=== PATIENT | female | born 1970 | race African-American/Black ===

== ENCOUNTER 2017-01-29 07:12 | Inpatient (IN) | payer SELFPAY ==
[~2017-01-29] VITALS: Ht 172.7 cm; Wt 96.2 kg
[2017-01-29] MEDS ORDERED: ONDANSETRON 4 MG/2 ML VIAL IV ONE (07:30)
[2017-01-29] MEDS ORDERED: HYDROMORPHONE 1 MG/1 ML DISP.SYRIN IV ONE (07:30)
[2017-01-29] MEDS ORDERED: IV NORMAL SALINE 500 ML BAG IV ONE (07:30)
[2017-01-29 07:42] LABS: BASOPHILS % (AUTO) 0.2 % (0.0-2.0); EOSINOPHILS # (AUTO) 0.1 K/uL (0.0-0.7); HEMATOCRIT 32.2 % (37-47); HEMOGLOBIN 9.9 G/DL (12.0-16.0); LYMPHOCYTES # (AUTO) 1.3 K/UL (0.8-4.8); LYMPHOCYTES % (AUTO) 10.8 % (20.5-51.5); MEAN CORPUSCULAR HEMOGLOBIN 21.6 UUG (27.0-31.0); MEAN CORPUSCULAR HGB CONC 31 g/dL (32.0-37.0); MEAN CORPUSCULAR VOLUME 70.7 FL (81.0-99.0); MONOCYTES # (AUTO) 0.8 K/UL (0.1-1.30); NEUTROPHILS # (AUTO) 9.9 K/UL (1.8-8.9); PLATELET COUNT (AUTO) 276 K/UL (150-450); RED BLOOD CELL COUNT(AUTO) 4.55 MIL/UL (4.2-5.4); WHITE BLOOD COUNT (AUTO) 12.1 K/UL (4.0-11.2)
[2017-01-29 07:43] LABS: CREATININE 0.9 mg/dL (0.6-1.3)
[2017-01-29 07:49] LABS: BILIRUBIN,DIRECT 0.2 mg/dL (0.0-0.2); BILIRUBIN,TOTAL 0.7 mg/dL (0.2-1.0)
[2017-01-29] MEDS ORDERED: ONDANSETRON 4 MG/2 ML VIAL ONE (07:50)
[2017-01-29] MEDS ORDERED: HYDROMORPHONE 1 MG/1 ML DISP.SYRIN ONE (07:50)
[2017-01-29 08:07] LABS: *BILIRUBIN,URIN NEGATIVE (NEGATIVE); *BLOOD, URINE 1+ (NEGATIVE); *CLARITY,URINE SLIGHTLY CLOUDY (CLEAR); *COLOR,URINE YELLOW (YELLOW); *KETONES,URINE NEGATIVE (NEGATIVE); *PROTEIN,URINE NEGATIVE (NEGATIVE); *UROBILINOGEN,URINE 0.2 E.U./dl (NORMAL); LEUKOCYTE ESTERASE ,URINE NEGATIVE (NEGATIVE); NITRITE, URINE POSITIVE (NEGATIVE); UGLUCOSE NEGATIVE (NEGATIVE)
[2017-01-29 08:20] LABS: *URINE HCG, QUAL NEGATIVE (NEGATIVE); BACTERIA,URINE MANY /HPF (NONE SEEN); RBC,URINE NONE SEEN /HPF (0-3); SQUAMOUS EPITHELIAL CELL,UR MODERATE /HPF (NONE SEEN); WBC,URINE 0-3 /HPF (0-3)
[2017-01-29] MEDS ORDERED: PIPERACILLIN SODIUM/TAZOBACTAM 3.375 G in IV DEXTROSE 5% 50 ML IV ONE (09:00)
[2017-01-29] MEDS ORDERED: METRONIDAZOLE 500 MG/NS 100 ML PIGGYBACK IV ONE (09:00)
[2017-01-29] MEDS ORDERED: IBUP-1953 PO (09:04)
[2017-01-29] MEDS ORDERED: PIPERACILLIN/TAZOBACTAM/D5W 50 ML IV ONE (09:18)
[2017-01-29] MEDS ORDERED: METRONIDAZOLE 500 MG/NS 100ML 100 ML IV ONE (09:18)
--- NOTE | 2017-01-29 09:30 | NUR ---
called dr. bernie cortes for surgical consult andstefani a message
--- NOTE | 2017-01-29 10:26 | NUR ---
pt transfered to floor in stable condition
--- NOTE | 2017-01-29 10:33 | NUR ---
ADMITTED FROM HOME VIA ER A 46 YO FEMALE WITH ADM DX OF DIVERTICULITIS ALERT AND ORIENTED X3 NO SIGNS OF PAIN OR DISTRESS, PAIN UNDER CONTROL FROM DILAUDID GIVEN IN ER. ROUTINE ADMISSION ASSESSMENT INITIATED DR ARMENDARIZ MADE AWARE OF ADMISSION. AWAITING SURGICAL CONSULT
[2017-01-29 11:00] VITALS: BP 93/61
[2017-01-29] MEDS: IV NS 1000 ML 1,000 ML IV ONE ×2 (11:00→11:35)
[2017-01-29] MEDS ORDERED: ONDANSETRON 4 MG/2 ML VIAL IV PRN (11:15)
[2017-01-29] MEDS: IV NS 1000 ML 1,000 ML IV SCH ×3 (11:15→22:43)
[2017-01-29] MEDS ORDERED: ACETAMINOPHEN 325 MG TABLET PO PRN (11:15)
[2017-01-29] MEDS ORDERED: MAGNESIUM HYDROXIDE 30 ML LIQUID UDC PO PRN (11:15)
[2017-01-29] MEDS ORDERED: MORPHINE SULFATE 2 MG/1 ML DISP.SYRIN IV PRN ×2 (11:15→18:15)
[2017-01-29] MEDS ORDERED: ZOLPIDEM 5 MG TABLET PO PRN (11:15)
[2017-01-29] MEDS ORDERED: Z GUARD REMEDY PASTE 57 GM TUBE TOP PRN (11:15)
[2017-01-29] MEDS ORDERED: MORPHINE SULFATE 4 MG/1 ML DISP.SYRIN IV PRN (11:45)
--- NOTE | 2017-01-29 12:00 | NUR ---
SEEN BY DR ANNE FOR CONSULT SEE NOTES
[2017-01-29] MEDS: METRONIDAZOLE 500 MG/NS 100ML 500 MG in PREMIXED 1 EACH IV SCH ×2 (13:09→22:43)
--- NOTE | 2017-01-29 15:47 | NUR ---
KEEP NPO TILL FURTHER ORDERS, STARTED ON IV ANTIBIOTICS NO ALLERGY REACTION NOTED
[2017-01-29 16:14] VITALS: BP 99/67
--- NOTE | 2017-01-29 16:32 | NUR ---
NS IV STARTED AT 1135
[2017-01-29] MEDS: HYDROCODONE/APAP 5-325MG TABLET PO PRN (17:28)
--- NOTE | 2017-01-29 17:54 | NUR ---
REMAINS NPO TILL FURTHER ORDERS, CONTINUE WITH PAIN MANAGEMENT
--- NOTE | 2017-01-29 19:40 | NUR ---
PT RECEIVED IN BED, AWAKE. A/OX4. ABLE TO MAKE NEEDS KNOWN. V/S STABLE. NO ACUTE DISTRESS NOTED. NO COMPLAINTS OF PAIN AT THIS TIME. IVF INFUSING. SAFETY MEASURES IMPLEMENTED. CALL LIGHT WITHIN REACH. WILL CONT TO MONITOR.
[2017-01-29 20:00] VITALS: BP 95/58
--- NOTE | 2017-01-29 20:55 | NUR ---
WITH PT TO DISCUSS PLAN OF CARE.
[2017-01-29] MEDS: MORPHINE SULFATE 4 MG/1 ML DISP.SYRIN IV PRN (23:03)
[2017-01-30] MEDS: HYDROCODONE/APAP 5-325MG TABLET PO PRN ×2 (00:48→20:11)
[2017-01-30] MEDS: METRONIDAZOLE 500 MG/NS 100ML 500 MG in PREMIXED 1 EACH IV SCH ×3 (05:48→21:37)
[2017-01-30] MEDS: MORPHINE SULFATE 4 MG/1 ML DISP.SYRIN IV PRN ×2 (05:48→12:14)
[2017-01-30] MEDS: PANTOPRAZOLE SODIUM 40 MG TABLET.DR PO SCH (05:49)
[2017-01-30 05:51] VITALS: BP 90/56
--- NOTE | 2017-01-30 06:26 | NUR ---
END OF SHIFT NOTES. PT SLEPT INTERMITTENTLY THROUGHOUT SHIFT. V/S STABLE. NO ACUTE DISTRESS NOTED. PT COMPLAIN OF ABDOMINAL PAIN DURING SHIFT. PAIN MEDICATION ADMINISTERED ORDERED. IVF INFUSING. SAFETY MAINTAINED. CALL LIGHT WITHIN REACH.
[2017-01-30 06:35] LABS: BASOPHILS % (AUTO) 0.3 % (0.0-2.0); EOSINOPHILS # (AUTO) 0.4 K/uL (0.0-0.7); EOSINOPHILS % (AUTO) 4.3 % (0.0-7.0); HEMATOCRIT 30.5 % (37-47); HEMOGLOBIN 9.7 G/DL (12.0-16.0); LYMPHOCYTES # (AUTO) 2.3 K/UL (0.8-4.8); LYMPHOCYTES % (AUTO) 27.4 % (20.5-51.5); MEAN CORPUSCULAR HEMOGLOBIN 22.7 UUG (27.0-31.0); MEAN CORPUSCULAR HGB CONC 32 g/dL (32.0-37.0); MEAN CORPUSCULAR VOLUME 71.4 FL (81.0-99.0); MONOCYTES % (AUTO) 11.5 % (0.0-11.0); NEUTROPHILS # (AUTO) 4.6 K/UL (1.8-8.9); NEUTROPHILS % (AUTO) 56.5 % (38.5-71.5); PLATELET COUNT (AUTO) 269 K/UL (150-450); RED BLOOD CELL COUNT(AUTO) 4.27 MIL/UL (4.2-5.4); WHITE BLOOD COUNT (AUTO) 8.3 K/UL (4.0-11.2)
[2017-01-30 07:45] LABS: PHOSPHOROUS 3.4 mg/dL (2.5-4.9); POTASSIUM 3.5 mmol/L (3.5-5.1)
--- NOTE | 2017-01-30 09:00 | NUR ---
DAILY NOTE JUST RECEIVED REPORT ON THIS PT FROM HER NURSE. ADDING HER TO MY ASSIGNMENT. IN TO SEE PT TO LET HER KNOW VERBALIZED UNDERSTANDING NO C/O PAIN
[2017-01-30 09:37] LABS: BAND % (MANUAL) 2 % (0-10); EOSINOPHILS % (MANUAL) 5 % (0-8); LYMPHOCYTES % (MANUAL) 30 % (20-40); MONOCYTES % (MANUAL) 12 % (2-10); NEUTROPHILS % (MANUAL) 51 % (42-75)
[2017-01-30] MEDS: IV NS 1000 ML 1,000 ML IV SCH ×2 (10:51→20:11)
[2017-01-30 12:01] VITALS: BP 100/58
[2017-01-30 12:33] LABS: IRON, SERUM 23 ug/dL (50-175)
[2017-01-30 12:46] LABS: FERRITIN 43 ng/mL (8-252)
[2017-01-30 15:02] VITALS: BP 94/50
--- NOTE | 2017-01-30 19:45 | NUR ---
PT RECEIVED SITTING UP IN BED, NO ACUTE DISTRESS NOTED. AOX4. PT LUNGS SOUNDS CLEAR THROUGH OT WITH AUSCULTATION. IVF RUNNING IN LEFT ARM, INTACT AND PATIENT. NO PHYSICAL DISCOMFORT NOTED AT THIS TIME. BED IN LOW AND LOCKED POSITION, CALL LIGHT WITHIN REACH. SAFETY MEASURES MAINTAINED.
[2017-01-30 20:00] VITALS: BP 106/63
[2017-01-31 04:30] VITALS: BP 108/66
[2017-01-31] MEDS: PANTOPRAZOLE SODIUM 40 MG TABLET.DR PO SCH (06:11)
[2017-01-31] MEDS: METRONIDAZOLE 500 MG/NS 100ML 500 MG in PREMIXED 1 EACH IV SCH ×3 (06:11→21:21)
[2017-01-31] MEDS: IV NS 1000 ML 1,000 ML IV SCH ×3 (06:13→19:15)
[2017-01-31 06:46] LABS: BASOPHILS % (AUTO) 0.3 % (0.0-2.0); EOSINOPHILS # (AUTO) 0.3 K/uL (0.0-0.7); EOSINOPHILS % (AUTO) 4.7 % (0.0-7.0); HEMATOCRIT 29.5 % (37-47); HEMOGLOBIN 9.2 G/DL (12.0-16.0); LYMPHOCYTES # (AUTO) 1.6 K/UL (0.8-4.8); LYMPHOCYTES % (AUTO) 28.3 % (20.5-51.5); MEAN CORPUSCULAR HEMOGLOBIN 22.2 UUG (27.0-31.0); MEAN CORPUSCULAR HGB CONC 31 g/dL (32.0-37.0); MEAN CORPUSCULAR VOLUME 71.5 FL (81.0-99.0); MONOCYTES # (AUTO) 0.6 K/UL (0.1-1.30); MONOCYTES % (AUTO) 11.4 % (0.0-11.0); NEUTROPHILS % (AUTO) 55.3 % (38.5-71.5); PLATELET COUNT (AUTO) 258 K/UL (150-450); RED BLOOD CELL COUNT(AUTO) 4.12 MIL/UL (4.2-5.4); WHITE BLOOD COUNT (AUTO) 5.5 K/UL (4.0-11.2)
[2017-01-31 09:13] LABS: CREATININE 0.9 mg/dL (0.6-1.3); POTASSIUM 3.7 mmol/L (3.5-5.1)
[2017-01-31 10:21] LABS: BAND % (MANUAL) 1 % (0-10); EOSINOPHILS % (MANUAL) 4 % (0-8); LYMPHOCYTES % (MANUAL) 24 % (20-40); MONOCYTES % (MANUAL) 6 % (2-10); NEUTROPHILS % (MANUAL) 65 % (42-75)
--- NOTE | 2017-01-31 10:29 | NUR ---
DAILY NOTE TOLERATING LIQUID DIET NO C/O N/V OR PAIN NOTED. REQUEST TO BE ADVANCED TO SOFT DIET. OK'D BY . INFORMED PT GAVE HER THE NUMBER FOR DIETARY SOS SHE CAN REQUEST HER SOFT MEAL FOR LUNCH
[2017-01-31 11:13] VITALS: BP 97/68
[2017-01-31 15:00] VITALS: BP 100/68
[2017-01-31 20:00] VITALS: BP 101/69
--- NOTE | 2017-01-31 20:00 | NUR ---
RECEIVED PATIENT AWAKE IN BED. PATIENT IS A/O X4. DENIES PAIN OR DISCOMFORT. NO RESP. DISTRESS NOTED. IVF INFUSING WELL. VS WNL. CALL LIGHT IN REACH. ALL NEEDS ATTENDED. WILL CONTINUE TO MONITOR.
[2017-02-01] MEDS: IV NS 1000 ML 1,000 ML IV SCH ×2 (00:31→11:15)
[2017-02-01 05:00] VITALS: BP 110/73
[2017-02-01] MEDS: METRONIDAZOLE 500 MG/NS 100ML 500 MG in PREMIXED 1 EACH IV SCH ×2 (05:04→14:44)
[2017-02-01] MEDS: PANTOPRAZOLE SODIUM 40 MG TABLET.DR PO SCH (06:02)
[2017-02-01 06:41] LABS: BASOPHILS % (AUTO) 0.3 % (0.0-2.0); EOSINOPHILS # (AUTO) 0.2 K/uL (0.0-0.7); EOSINOPHILS % (AUTO) 3.6 % (0.0-7.0); HEMATOCRIT 28.7 % (37-47); LYMPHOCYTES # (AUTO) 1.1 K/UL (0.8-4.8); LYMPHOCYTES % (AUTO) 22.3 % (20.5-51.5); MEAN CORPUSCULAR HEMOGLOBIN 22.5 UUG (27.0-31.0); MEAN CORPUSCULAR HGB CONC 32 g/dL (32.0-37.0); MEAN CORPUSCULAR VOLUME 71.5 FL (81.0-99.0); MONOCYTES # (AUTO) 0.5 K/UL (0.1-1.30); NEUTROPHILS % (AUTO) 63.8 % (38.5-71.5); PLATELET COUNT (AUTO) 278 K/UL (150-450); RED BLOOD CELL COUNT(AUTO) 4.01 MIL/UL (4.2-5.4); WHITE BLOOD COUNT (AUTO) 4.8 K/UL (4.0-11.2)
--- NOTE | 2017-02-01 06:44 | NUR ---
PATIENT AWAKE IN BED. SLEPT WELL THROUGHOUT THE NIGHT. DENIES PAIN OR DISCOMFORT. CALL LIGHT IN REACH. ALL NEEDS ATTENDED. WILL CONTINUE TO MONITOR.
[2017-02-01 06:53] LABS: CREATININE 0.9 mg/dL (0.6-1.3); POTASSIUM 3.4 mmol/L (3.5-5.1)
[2017-02-01 11:21] VITALS: BP 111/76
[2017-02-01 12:35] LABS: BASOPHILS % (MANUAL) 1 % (0-2); EOSINOPHILS % (MANUAL) 4 % (0-8); LYMPHOCYTES % (MANUAL) 22 % (20-40); MONOCYTES % (MANUAL) 8 % (2-10); NEUTROPHILS % (MANUAL) 65 % (42-75)
[2017-02-01] MEDS ORDERED: METR500T PO (12:56)
[2017-02-01] MEDS ORDERED: POTASSIUM CHLORIDE 20 MEQ TAB.PRT.SR PO ONE (14:00)
[2017-02-01 14:55] VITALS: BP 115/78
--- NOTE | 2017-02-01 15:49 | NUR ---
PT. TOLERATING FOOD WELL. OFFERS NO COMPLAINTS. VOIDING. DAUGHTER AT BS. PT. GIVEN FLAGYL IV PRIOR TO DISCHARGE.
--- NOTE | 2017-02-01 16:13 | NUR ---
PT. STABLE . DISCHARGE INSTRUCTIONS GIVEN AND PT. VERBALIZED UNDERSTANDING. IV REMOVED WITH INNER CANNULA INTACT. CALLED IN RX TO PT.'S PHARMACY. PT. AMBULATED OFF UNIT WITH ALL BELONGINGS ACCOMPANIED BY DAUGHTER.
== END 2017-02-01 16:15 | disposition home or self-care (01) | DRG 392 ==
LOC: ER 07:12 → MED 10:19
PROVIDERS: ADMIT Family Medicine; ATTEND Family Medicine
DX: K57.32 Diverticulitis of large intestine without perforation or abscess without bleeding (principal); E87.1 Hypo-osmolality and hyponatremia; N39.0 Urinary tract infection, site not specified; E86.0 Dehydration; Z68.32 Body mass index [BMI] 32.0-32.9, adult; Z83.3 Family history of diabetes mellitus; Z80.0 Family history of malignant neoplasm of digestive organs; D50.9 Iron deficiency anemia, unspecified; K76.89 Other specified diseases of liver; K59.00 Constipation, unspecified; E66.9 Obesity, unspecified
CPT/HCPCS: 36415; 83550; 83690; 83735; 84100; 84703; 85025; A4663; J1170; J2270; J2405; J2543; J3490; J7030; J7040